=== PATIENT | male | born 1960 | race Caucasian/White ===

== ENCOUNTER → 2016-11-07 | Outpatient (CLI) | payer OTHER ==
--- NOTE | 2016-11-07 14:29 | CARD ---
APPROVED REPORT EXAM: Two-dimensional and M-mode echocardiogram with Doppler and color Doppler. Other Information Quality : Good INDICATION Dizziness 2D DIMENSIONS RVDd2.7 (2.9-3.5cm)Left Atrium(2D)4.0 (1.6-4.0cm) IVSd1.3 (0.7-1.1cm)Aortic Root(2D)3.3 (2.0-3.7cm) LVDd4.5 (3.9-5.9cm)LVOT Diameter2.1 (1.8-2.4cm) PWd1.0 (0.7-1.1cm)LVDs2.7 (2.5-4.0cm) FS (%) 30.0 %SV65.7 ml LVEF(%)60.0 (>50%) Aortic Valve AoV Peak Wu.145.7cm/sAoV VTI28.5cm AO Peak GR.8.5mmHgLVOT Peak Wu.147.8cm/s AO Mean GR.4mmHgAVA (VMAX)3.36cm2 SANYA (VTI)3.30cm2 Mitral Valve MV E Hwopxwda47.0cm/sMV DECEL JXDV980xo MV A Uhglxmst49.8cm/sE/A Ratio0.6 Tricuspid Valve TR P. Rcqxyrol910uh/sRAP WADDJMYF8mjMg TR Peak Gr.83ueMwEGOV37ujUb Pulmonary Vein S1 Xebgtwsb45.6cm/sD2 Hgjtfkdq44.5cm/s PVa qvojgalx558vaij LEFT VENTRICLE The left ventricle is normal size. There is mild concentric left ventricular hypertrophy. The left ve ntricular systolic function is normal. The Ejection Fraction is 60-65%. There is normal LV segmental wall motion. Transmitral Doppler flow pattern is Grade I-abnormal relaxation pattern. RIGHT VENTRICLE The right ventricle is normal size. The right ventricular systolic function is normal. ATRIA The left atrium size is normal. The right atrium size is normal. The interatrial septum is intact wit h no evidence for an atrial septal defect or patent foramen ovale as noted on 2-D or Doppler imaging. AORTIC VALVE The aortic valve is normal in structure and function. Doppler and Color Flow revealed no significant aortic regurgitation. There is no significant aortic valvular stenosis. MITRAL VALVE The mitral valve is normal in structure and function. There is no evidence of mitral valve prolapse. There is no mitral valve stenosis. Doppler and Color-flow revealed trace to mild mitral regurgitation . TRICUSPID VALVE The tricuspid valve is normal in structure and function. Doppler and Color Flow revealed trace tricus pid regurgitation. The PA pressure was estimated at 29 mmHg. There is no tricuspid valve stenosis. PULMONIC VALVE The pulmonary valve is normal in structure and function. Doppler and Color Flow revealed trace pulmon ic valvular regurgitation. There is no pulmonic valvular stenosis. GREAT VESSELS The aortic root is normal in size. The ascending aorta is borderline dilated at 3.4 cm. The IVC is no rmal in size and collapses >50% with inspiration. PERICARDIAL EFFUSION There is no evidence of significant pericardial effusion. Critical Notification Critical Value: No <Conclusion> The left ventricular systolic function is normal. The Ejection Fraction is 60-65%. There is normal LV segmental wall motion. Transmitral Doppler flow pattern is Grade I-abnormal relaxation pattern. Trace to mild mitral regurgitation. Trace tricuspid regurgitation. The PA pressure was estimated at 29 mmHg. There is no evidence of significant pericardial effusion.
--- NOTE | 2016-11-12 15:36 | RAD ---
APPROVED REPORT Patient Location: OUT-PATIENT Indications RT SHOULDER PAIN/R/O RT SUBCLAVIAN ARTERY STENOSIS Waveforms Right Left Prox Mid Distal Prox Mid Distal Subcl. [id number]. Findings Thompson scale images of the right subclavian artery revealed mild to moderate diffuse plaquing without a ny critical obstructive disease. Spectral waveforms are notable for monophasic to biphasic waveforms suggestive loss of arterial elasticity with no significant velocity acceleration or deceleration note d. Color Doppler images reveal normal flow patterns. Critical Notification Critical Value: No <Conclusion> No significant right subclavian artery stenosis identified on this study.
== END | disposition home or self-care (01) ==
LOC: US 09:34
PROVIDERS: ATTEND Internal Medicine Cardiovascular Disease
DX: I77.1 Stricture of artery (principal); R42 Dizziness and giddiness; I51.7 Cardiomegaly; I34.0 Nonrheumatic mitral (valve) insufficiency
CPT/HCPCS: 93306; 93931

== ENCOUNTER → 2016-12-19 | Outpatient (CLI) | payer OTHER ==
[~2016-12-19] MED LIST: GADOBUTROL 7.5 MMOL/7.5 ML VIAL IV ONE
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
== END | disposition home or self-care (01) ==
LOC: MRI 07:18
PROVIDERS: ATTEND Psychiatry & Neurology Neurology
DX: M50.322 Other cervical disc degeneration at C5-C6 level (principal); M47.892 Other spondylosis, cervical region
CPT/HCPCS: 72156; A9585

== ENCOUNTER → 2017-02-19 | Outpatient (CLI) | payer OTHER ==
[~2017-02-19] MED LIST changes: +ASPI-630 PO; +CEFA500C PO; +CITA10TA8 PO; +GABA-587 PO; -GADOBUTROL 7.5 MMOL/7.5 ML VIAL IV ONE; +HYDR-2758 PO; +IBUP-1060 PO; +MULT-460 PO; +TAMS0.4C97 PO
[2017-02-19 15:44] LABS: BASO % 1 % (0-3); EOS % 2 % (0-3); HEMATOCRIT 44.5 % (39.0-53.0); HEMOGLOBIN 15.1 g/dL (13.0-17.5); LYMPH # 1.8 x10^3/uL (1.0-4.8); LYMPH % 24 % (24-48); MEAN CORPUSCULAR HEMOGLOBIN 33 pg (25-35); MEAN CORPUSCULAR HGB CONC 34 g/dL (31-37); MEAN CORPUSCULAR VOLUME 97 fL (79-100); MONO % 8 % (0-9); NEUT % 65 % (31-73); PLATELET COUNT 195 x10^3/uL (140-400); RED BLOOD COUNT 4.58 x10^6/uL (4.30-5.70); RED CELL DISTRIBUTION WIDTH 13.2 % (11.5-14.5); WHITE BLOOD COUNT 7.7 x10^3/uL (4.0-11.0)
[2017-02-19 16:00] LABS: PROTHROMBIN TIME PATIENT 12.4 SEC (11.7-14.0)
== END | disposition home or self-care (01) ==
LOC: SURGPAT 13:24
PROVIDERS: ATTEND Neurological Surgery
DX: M54.12 Radiculopathy, cervical region (principal)
CPT/HCPCS: 36415; 85027; 85610; 85730; 87641

== ENCOUNTER 2017-02-27 08:27 | Day surgery (SDC) | payer OTHER ==
[~2017-02-27] VITALS: Ht 180.3 cm; Wt 81.6 kg
[~2017-02-27 08:27] MED LIST changes: +BACITRACIN 50,000 UNIT in IV NORMAL SALINE 1000ML BAG 1,000 ML IRR ONE; -CEFA500C PO; +GELATIN SPONGE SIZE 100. ONE; -HYDR-2758 PO; +HYDROmorphone 2 MG/ML VIAL IV PRN; +IV RINGERS,LACTATED 1000ML 1,000 ML IV SCH; +LIDOCAINE 1% 1 ML SYRINGE. ID PRN; +LIDOCAINE 1%/EPI 1:100,000 20 ML VIAL. ONE; +MEPERIDINE PF 25 MG/ML VIAL. IV PRN; +MIDAZOLAM HCL/PF 2 MG/2 ML VIAL. IV PRN; +PROCHLORPERAZINE 10 MG/2 ML VIAL. IV PRN; +THROMBIN TOPICAL 20,000 UNIT SPRAY.SYRN KIT TP ONE; +diphenhydrAMINE 50 MG/ML VIAL IV PRN; +fentaNYL PF VIAL 100 MCG/2 ML VIAL IV PRN
[2017-02-27] MEDS ORDERED: CEFA500C PO (09:21)
[2017-02-27] MEDS ORDERED: HYDR-2758 PO (09:21)
[2017-02-27] MEDS ORDERED: 0.9 % SODIUM CHLORIDE 50 ML VIAL. IJ ONE (09:23)
[2017-02-27] MEDS ORDERED: MINERAL OIL/PETROLATUM,WHITE OPHTH OINT 3.5GM TUBE. ONE (09:23)
[2017-02-27] MEDS ORDERED: ONDANSETRON PF 4 MG/2 ML VIAL. ONE (09:23)
[2017-02-27] MEDS ORDERED: PROPOFOL 50 ML IV ONE (09:23)
[2017-02-27] MEDS ORDERED: DEXAMETHASONE SOD PHOS 20 MG/5 ML VIAL. ONE (09:23)
[2017-02-27] MEDS ORDERED: DESFLURANE > 120 MINUTES IH ONE (09:23)
[2017-02-27] MEDS ORDERED: PROPOFOL 20 ML IV ONE (09:23)
[2017-02-27] MEDS ORDERED: LIDOCAINE 2% PF Vial for OR 5 ML VIAL. ONE (09:23)
[2017-02-27] MEDS ORDERED: fentaNYL PF VIAL 100 MCG/2 ML VIAL ONE (09:24)
[2017-02-27] MEDS ORDERED: MIDAZOLAM HCL/PF 2 MG/2 ML VIAL. ONE (09:24)
[2017-02-27] MEDS ORDERED: REMIFENTANIL 2 MG VIAL. IV ONE (09:24)
[2017-02-27] MEDS ORDERED: GLYCOPYRROLATE 1 MG/5 ML VIAL. ONE (10:54)
[2017-02-27] MEDS ORDERED: ROCURONIUM 50 MG/5 ML VIAL. ONE (10:56)
[2017-02-27] MEDS ORDERED: PHENYLEPHRINE in 0.9% NACL PF 1 MG/10 ML DISP.SYRIN. IV ONE (11:52)
--- NOTE | 2017-02-27 13:08 | PDOC ---
BRIEF OPERATIVE NOTE Date: Feb 27, 2017 Pre-Op Diagnosis cervical radiculopathy, cervical foraminal stenosis Post-Op Diagnosis same Procedure Performed right C5-6 posterior foraminotomy Surgeon Johana Cnc Field Service Engineer none Anesthesiologist Riki Anesthesia Type: General Blood Loss 25mL Specimens Obtained decompression Findings prominent foraminal stenosis right C5-6 Complications none apparent Additional Remarks neuromonitoring potentials improved compared to baseline at completion of the procedure CARYN HELM MD Feb 27, 2017 13:08
--- NOTE | 2017-02-27 13:14 | DISCH ---
DISCHARGE INSTRUCTIONS Condition on Discharge Condition on Discharge: Stable Activity After Discharge Activity Instructions for Disc: Avoid exertion, Other, see below (avoid strenouous activity or lifting more than 10 lbs) Lifting Instructions after Dis: Do not lift >10 pounds Weight Bearing Status after Di: Other, see below (weight bearing and activity regarding the legs per his surgeon who recently operated on his knee) Wound Incision Care Wound/Incision Care: Ice to area for comfort, Other, see below (keep incision clean and dry; do not soak, scrub, or submerge incision; may remove dressing day 3 after surgery) Contacting the DR. mora DC Call your doctor for: Concerns you may have Follow-Up Follow up with: Dr. Helm, neurosurgery, in two weeks [phone] CARYN HELM MD Feb 27, 2017 13:14
[2017-02-27] MEDS ORDERED: TAMSULOSIN 0.4 MG CAP.ER.24H. PO PRN (13:15)
[2017-02-27] MEDS ORDERED: NON FORMULARY ITEM (Ibuprofen 800 MG) PO PRN (13:15)
[2017-02-27] MEDS ORDERED: MEPERIDINE PF 25 MG/ML VIAL. ONE (13:25)
[2017-02-27] MEDS ORDERED: diphenhydrAMINE 50 MG/ML VIAL IV PRN (13:30)
[2017-02-27] MEDS ORDERED: MEPERIDINE PF 25 MG/ML VIAL. IV PRN (13:30)
[2017-02-27] MEDS ORDERED: fentaNYL PF VIAL 100 MCG/2 ML VIAL IV PRN ×2 (13:30)
[2017-02-27] MEDS ORDERED: PROCHLORPERAZINE 10 MG/2 ML VIAL. IV PRN (13:30)
[2017-02-27] MEDS: fentaNYL PF VIAL 100 MCG/2 ML VIAL IV PRN ×2 (13:51→13:57)
[2017-02-27] MEDS: HYDROmorphone 2 MG/ML VIAL IV PRN ×2 (14:06→14:24)
[2017-02-27 14:23] VITALS: BP 130/84
[2017-02-27] MEDS ORDERED: OXYC-323 PO ×2 (14:27→14:29)
[2017-02-27] MEDS ORDERED: METHOCARBAMOL 750 MG TABLET PO PRN (14:45)
[2017-02-27] MEDS ORDERED: oxyCODONE/APAP 5/325 1 TAB TABLET PO PRN (14:45)
[2017-02-27] MEDS ORDERED: CEFADROXIL PO SCH (21:00)
[2017-02-27] MEDS ORDERED: GABAPENTIN 400 MG PO SCH (21:00)
[2017-02-28] MEDS ORDERED: ASPIRIN CHEWABLE 81 MG TABLET. PO SCH (09:00)
[2017-02-28] MEDS ORDERED: NON FORMULARY ITEM (Multivitamin With Minerals (Multiple Vitamin) 1 EACH) PO SCH (09:00)
[2017-02-28] MEDS ORDERED: CITALOPRAM 10 MG TABLET. PO SCH (09:00)
--- NOTE | 2017-02-28 15:49 | PATHOLOGY ---
PATHOLOGY REPORT * * * * * * * * FINAL DIAGNOSIS: Bone and soft tissue, "cervical disc": - Fragments of bone, cartilage and soft tissue consistent with disc material with fibrosis. - Clinical history of cervical 5-6 stenosis noted. ([facility]; d/t: 02/28/17) REPORT ELECTRONICALLY SIGNED BY: Michael Hurt M.D. DATE/TIME: 02/28/2017 15:48 * * * * * * * * GROSS PATHOLOGY: Received in formalin labeled "Eula Carbajal, cervical disc" are multiple segments of morrison, rubbery, and gritty tissue admixed with bone. The specimen measures 2.5 x 2.3 x 0.7 cm in aggregate dimensions. The tissue is submitted entirely in cassette A1, following decalcification. ([facility]; 02/27/17) INITIAL CPT CODE(S): A; 70036, 76059 Professional services performed [place] [facility] [place] [address] Technical services performed by [facility] at [address] [place] [address], [facility] [[email or web address]] [address] [address]. SPECIMEN(S) RECEIVED: A.Cervical decompression CLINICAL HISTORY: Right cervical radiculopathy with cervical 5-6 stenosis PATIENT: EULA CARBAJAL /AGE: 1208/30/1960 (Age: 56) PATIENT #: [id number] ALT CASE #: SPECIMEN COLLECTION DATE: 02/27/2017 SPECIMEN RECEIVED DATE: 02/27/2017 [facility] - [address] [place] [address] - PHONE: [phone] * * * END OF REPORT * * *
--- NOTE | 2017-03-01 14:16 | OP ---
DATE OF SURGERY: 02/27/2017 SURGEON: CARYN HELM MD CRAFT MANAGER: None. PREOPERATIVE DIAGNOSES: Cervical radiculopathy with cervical foraminal stenosis. POSTOPERATIVE DIAGNOSES: Cervical radiculopathy with cervical foraminal stenosis. PROCEDURE: Right cervical 5-6 cervical foraminotomy with intraoperative use of neuromonitoring. ANESTHESIA: General. COMPLICATIONS: None intraprocedurally. INDICATIONS FOR THE PROCEDURE: The patient is a 56-year-old gentleman who has symptoms of right cervical 6 nerve root radiculopathy and has been refractory to multiple nonsurgical treatments. On imaging, it was noted that he had a prominent cervical foraminal stenosis at cervical 5-6 on the right. Please refer to the patient's chart for additional details. DESCRIPTION OF PROCEDURE: After informed consent was obtained, the patient was brought into the operating room. He was placed under general anesthesia. He was placed in the prone position on the Lucio frame after a [employer] communications department head was attached to a pressure of 70 pounds. The patient's head was affixed to the table via the [employer] in a neutral position and all pressure points were checked and padded appropriately. The posterior cervical region was prepped and draped in the usual sterile fashion. Fluoroscopy was utilized to localize an appropriate incision location. A vertical incision centered over the region of cervical 5-6 was made with a 10 blade scalpel. Monopolar electrocautery was utilized to dissect the avascular midline approach to the spinous processes of cervical 5 and cervical 6. Dissection was carried rightward across the lamina at this location. Fluoroscopy was utilized to verify the appropriate level and a right hemilaminotomy with foraminotomy was performed at the inferior aspect of cervical 5 and the superior aspect of cervical 6. This was performed with a pneumatic drill as well as Kerrison rongeur. The nerve root was identified and foraminotomy was completed with a Kerrison rongeur. Upon completion of this, the adjacent nerve was noted to be very well decompressed, verified with direct visualization as well as gentle palpation with the small blunt nerve hook. Upon completion of this, neuro monitoring was also noted to be somewhat improved upon completion of decompression. Upon completion of the procedure, pristine hemostasis was achieved with FloSeal, cottonoids and some use of bipolar electrocautery. The wound was generously irrigated with antibiotic irrigation prior to the final closure. The muscles and fascia were then reapproximated with 0 Vicryl in a simple interrupted fashion. The subcutaneous tissues were reapproximated with 2-0 Vicryl in an interrupted inverted fashion and the skin was reapproximated with vera. The wound was dressed with Xeroform, Telfa and Tegaderm. The drapes were taken down and the patient was detached from the table and turned supine onto an adjacent bed. [employer] communications department head was removed without problem. One of the ____ had small amount of hemorrhage for which hemostasis was achieved with tamponade. At the end of the procedure, all needle and sponge counts were correct x 2. The patient was extubated in the operating room and taken to recovery in stable condition. There were no intraprocedural complications apparent. CARYN HELM MD DR: SCARLET/orin JOB#: [id number] / [id number]
== END 2017-02-27 15:20 | disposition home or self-care (01) ==
LOC: SURG 08:27
PROVIDERS: ATTEND Neurological Surgery
DX: M54.12 Radiculopathy, cervical region (principal); M48.02 Spinal stenosis, cervical region; Z86.69 Personal history of other diseases of the nervous system and sense organs; M19.90 Unspecified osteoarthritis, unspecified site; Z87.39 Personal history of other diseases of the musculoskeletal system and connective tissue; Z72.89 Other problems related to lifestyle; Z86.14 Personal history of Methicillin resistant Staphylococcus aureus infection; Z88.6 Allergy status to analgesic agent
CPT/HCPCS: 63045; 76000; 88304; 88311; J0690; J1100; J1170; J2175; J2250; J2370; J2405; J2704; J3010; J3490; J7030; J7120